=== PATIENT | female | born 1965 | race Caucasian/White ===

== ENCOUNTER → 2017-10-26 09:34 | Outpatient (CLI) | payer BC, SELFPAY ==
--- NOTE | 2017-10-26 09:37 | MM_ITS ---
MM Dig screening mamm BI w/CAD CAD Screening COMPARISON: Digital mammograms with CAD 08/21/2016 and outside films from [facility] within [place] 08/12/2011 INDICATION: There is no personal or family history of breast cancer TECHNIQUE: Standard CC and MLO images were obtained. R2 CAD reviewed. FINDINGS: There is a diffusely dense and heterogenic parenchymal pattern lessening the sensitivity of mammography. There are few scattered benign-appearing calcifications in each breast. There is a possible developing asymmetric density left breast upper outer quadrant. Recommend the patient return for spot compression views and ultrasound may be necessary as well There are no suspicious microcalcifications. IMPRESSION: Diffusely dense and heterogenic parenchymal pattern with possible asymmetric density left breast BI-RADS Category: 0 Need Additional Imaging Evaluation RECOMMENDED FOLLOW-UP: IMM - IMMEDIATE FOLLOW-UP RECOMMENDED (A letter has been sent to the patient regarding results of the study.)
== END ==
PROVIDERS: Family Provider Family Medicine; PCP Family Medicine; Visit Provider Family Medicine
DX: Z12.31 Encounter for screening mammogram for malignant neoplasm of breast (principal)
CPT/HCPCS: 77067

== ENCOUNTER → 2017-11-15 13:29 | Outpatient (CLI) | payer BC, SELFPAY ==
--- NOTE | 2017-11-15 13:35 | MM_ITS ---
MM Dig mamm DX unilat LT CAD Left breast ultrasound complete with axilla INDICATION: Abnormal mammogram follow-up ORDERING PHYSICIAN: Moise Miller MD PATIENT AGE: 52 years COMPARISON: 10/26/2017 TECHNIQUE: Problem solid views and left breast ultrasound FINDINGS: Dense fibroglandular tissue. Asymmetric density in the superior aspect of the left breast does appear to compress out as fibroglandular tissue. No malignant appearing mass or malignant appearing microcalcification. Dense fibroglandular tissue could obscure underlying lesions therefore, correlation with breast exam is needed. There are benign-appearing calcifications in the outer aspect of the left breast. Left breast ultrasound: 3 mm cyst is present at 1:00, additional 3 mm cyst at 1:00, 6 mm cyst at 1:00, complex 9 x 6 mm cyst at 5:00 with enhanced through transmission of sound with some septations. This could represent 2 adjacent cysts as well. Hypoechoic area at 5:00 also noted at 3 mm and may be due to complex cyst. 5 mm cyst at 7:00, 5 mm cyst at 11:00. No suspicious nodules evident. IMPRESSION: No convincing evidence of malignancy. Probably benign findings. Multiple cysts of the left breast some of which have a complex appearance probably benign. Recommend 6 month mammographic and sonographic follow-up BI-RADS Category: 3 Probably Benign Finding Short Term Follow-up RECOMMENDED FOLLOW-UP: 6M - 6 MONTH FOLLOW-UP (A letter has been sent to the patient regarding results of the study.)
== END ==
PROVIDERS: PCP Family Medicine; Visit Provider Family Medicine
DX: R92.8 Other abnormal and inconclusive findings on diagnostic imaging of breast (principal)
CPT/HCPCS: 76641; 77065

== ENCOUNTER → 2018-03-16 08:18 | Outpatient (CLI) | payer BC, SELFPAY ==
[2018-03-16 10:37] LABS: Chol/HDL Ratio 4.4 (1-3.5); Cholesterol 241 mg/dL (140-200); HDL Cholesterol 55 mg/dL (29-89); LDL Cholesterol 152 mg/dL (0-130); Triglycerides 172 mg/dL (30-200); VLDL Cholesterol 34 mg/dL (0-40)
== END ==
PROVIDERS: Visit Provider Family Medicine
DX: E78.5 Hyperlipidemia, unspecified (principal)
CPT/HCPCS: 36415; 80061

== ENCOUNTER → 2018-07-20 12:29 | Outpatient (CLI) | payer BC, SELFPAY ==
--- NOTE | 2018-07-20 13:30 | US_ITS ---
MM Dig mamm DX unilat LT CAD, US breast LT complete INDICATION: Follow-up abnormal mammogram. Ultrasound ORDERING PHYSICIAN: Moise Miller MD PATIENT AGE: 52 years COMPARISON: 10/26/2017, 11/15/2017 TECHNIQUE: There is average fibroglandular tissue. Spot compression views of left breast demonstrate ML view is obtained along with left breast ultrasound FINDINGS: Dense fibroglandular tissue which decreases sensitivity of mammography. No discrete mass or malignant appearing microcalcification. Left breast ultrasound: There are multiple hypoechoic areas noted. At 12:00 there is a hypoechoic nodule at 2 mm. There may be some internal echoes. At 1:00 there is a 6 x 2 mm cyst, 5:00 there is a small cluster of cysts measuring 8 x 7 mm total within additional 4 x 3 mm smaller complex cyst. These are unchanged. 9:00 there is a 4 mm cyst at 10:00 there is a 4 mm cyst. There is an isoechoic lesion at 10:00 near the nipple which on further inspection appear to elongate as the rest of the fibroglandular tissue. This appearance was not repeatable . This is felt to be due to fibroglandular tissue. IMPRESSION: Benign findings. No convincing evidence of malignancy. No skin change BI-RADS Category: 2 Benign Finding(s) Recommend bilateral follow-up in October 2018 the patient back on schedule. (A letter has been sent to the patient regarding results of the study.)
== END ==
PROVIDERS: PCP Family Medicine; Visit Provider Family Medicine
DX: R92.8 Other abnormal and inconclusive findings on diagnostic imaging of breast (principal)
CPT/HCPCS: 76641; 77065

== ENCOUNTER → 2020-01-30 08:16 | Outpatient (CLI) | payer MEDICARE, BC, SELFPAY ==
--- NOTE | 2020-01-30 08:16 | MM_ITS ---
PROCEDURE: MM DIG SCREENING MAMM BI W/CAD Digital Breast Tomosynthesis Included CLINICAL INDICATION: screening xmg There is no personal or family history of breast cancer. There has been a previous cyst aspiration right breast with benign findings. COMPARISON: MG SCBI MM Dig screening mamm BI w/CAD from 10/26/2017 MG DXLT MM Dig mamm DX unilat LT CAD from 11/15/2017 MG DIG MAMM-DX UNI-LT from 07/20/2018 TECHNIQUE: Standard CC and MLO images and 3D Tomosynthesis was obtained. R2 CAD reviewed. FINDINGS: There is a diffusely dense and heterogenic parenchymal pattern bilaterally. There is a benign-appearing macro calcification in each breast. There is a partially calcified oil cyst deep to the nipple left breast. There is no suspicious lesion and no suspicious microcalcifications. IMPRESSION: Diffusely dense parenchymal pattern with no suspicious lesions seen BI-RAD Category: 2 Benign Finding(s) FOLLOW-UP: 1YR 1 Year Follow-up (A letter has been sent to the patient regarding results of the study.) Dictated by: Dr. Zeyad Gil MD 02/05/2020 07:44 Dr. Zeyad Gil MD in [place] 02/05/2020 07:44
== END ==
PROVIDERS: PCP Family Medicine; Visit Provider Nurse Practitioner Obstetrics & Gynecology
DX: Z12.31 Encounter for screening mammogram for malignant neoplasm of breast (principal)
CPT/HCPCS: 77063; 77067

== ENCOUNTER → 2021-09-23 09:01 | Outpatient (CLI) | payer MEDICARE, BC, SELFPAY | PROVIDERS: PCP Family Medicine; Visit Provider Internal Medicine Gastroenterology | DX: Z01.812 Encounter for preprocedural laboratory examination (principal); Z20.822 Contact with and (suspected) exposure to COVID-19; Z12.11 Encounter for screening for malignant neoplasm of colon | CPT/HCPCS: C9803; U0003; U0005 ==

== ENCOUNTER 2021-09-25 08:29 | Day surgery (SDC) | payer MEDICARE, BC, SELFPAY ==
[2021-09-25 08:53] VITALS: BP 118/71; PULSE 75; RESP 16; TEMP 36.4; O2SAT 96; BMI 23.5
--- NOTE | 2021-09-25 09:20 | HMH.ANESCL ---
[facility] Anesthesia Checklist - Structural Data Admitted From: Home Planned Operative Procedure/s: colonoscopy Consent for Planned Operative Procedure(s) Verified: Yes - Airway Assessment C-Spine Mobility Assessed: Yes TMJ Mobility Assessed: Yes Dentition: Good Dentition - Neurological Assessment Level of Consciousness: Awake, Alert, Appropriate - Anesthesia Plan Anesthesia Risk discussed: Yes Anesthesia Plan: Verified ASA Class: II Anesthesia Type: MAC [facility] History I have reviewed the patient's past medical history: Yes Medical History: Reports:: Cancer Denies:: Diabetes Mellitus Type 1, Diabetes Mellitus Type 2, Internal Pacemaker, MRSA, Seizures *Have you ever received a pneumonia vaccine?: Yes *Have you received a flu vaccine this season?: Yes Other Medical History: Reports: Anemia, Chemotherapy Anesthesia experience/problems:: none Other Surgeries: No: Pacemaker Amputation: No Fractures: No - *Social History Last grade of school completed: High school graduate Smoking Status: Former smoker Tobacco Type: cigarettes Smoking End Date: 2015 Alcohol Intake: current Alcohol Intake Frequency:: holidays/special occasions only Substance Use Type: denies use *Occupational Status:: retired *Travel in the last 8 weeks: Inside the [facility] Family Hx:: No significant family history
[2021-09-25 09:31] VITALS: O2SAT 96
--- NOTE | 2021-09-25 09:40 | HMH.SCOPE ---
- Procedure: Date: 09/25/21 Patient Date of :: 1965 Procedure Performed:: Screening colonoscopy Indications:: History of polyps Performing Provider:: Lenny Waller MD Referring Provider:: Moise Miller Sedation:: Propofol Procedure:: After placing the patient in the left lateral decubitus position, the colonoscopy was gently inserted into the rectum and under direct visualization advanced to the cecum which was identified by transillumination in the right lower quadrant, identification of the ileocecal valve, appendiceal orifice, and cecal strap. Color, texture, mucosa, and anatomy of the colon were carefully examined with the scope. Findings:: Anal canal: normal Rectum: normal Sigmoid colon: normal without polyps or inflammatory changes Descending colon: normal without polyps or inflammatory changes Splenic flexure: normal Transverse colon: normal without polyps or inflammatory changes Hepatic flexure: normal Ascending colon: normal without polyps or inflammatory changes Cecum: normal Terminal ileum: not visualized Impression: Normal colonoscopy Specimens:: None Recommendations:: Repeat examination in about 5-10 years Complications:: None Estimated blood obtained (mL): 0
[2021-09-25 09:42] VITALS: BP 115/69; PULSE 77; RESP 16; TEMP 36.8; O2SAT 97
[2021-09-25 09:52] VITALS: BP 115/69; PULSE 66; RESP 16; O2SAT 100
[2021-09-25 10:02] VITALS: BP 114/70; PULSE 71; RESP 16; O2SAT 100
[2021-09-25 10:12] VITALS: BP 112/73; PULSE 66; RESP 16; O2SAT 97
== END 2021-09-25 10:12 | disposition home or self-care (01) ==
LOC: OUTP 08:30
PROVIDERS: PCP Family Medicine; Visit Provider Internal Medicine Gastroenterology
PROC: 0DJD8ZZ Inspection of Lower Intestinal Tract, Via Natural or Artificial Opening Endoscopic (ICD-10-PCS; CPT 45378; principal; 2021-09-25 09:30)
DX: Z12.11 Encounter for screening for malignant neoplasm of colon (principal); Z86.010 Personal history of colon polyps
CPT/HCPCS: G0105

== ENCOUNTER → 2022-12-22 09:46 | Outpatient (CLI) | payer MEDICARE, BC, SELFPAY | PROVIDERS: PCP Family Medicine; Visit Provider Family Medicine | DX: Z20.822 Contact with and (suspected) exposure to COVID-19 (principal) | CPT/HCPCS: 87635 ==

== ENCOUNTER → 2023-01-26 08:15 | Outpatient (CLI) | payer MEDICARE, BC, SELFPAY ==
--- NOTE | 2023-01-26 08:20 | MM_ITS ---
PROCEDURE INFORMATION: Exam: MG Bilateral Screening 3D Mammography Exam date and time: 01/26/2023 8:21 AM Age: 57 years old Clinical indication: Screening examination TECHNIQUE: Imaging protocol: Bilateral Screening tomosynthesis and 2D mammography including computer-aided detection (CAD) when performed. COMPARISON: 1. MG MM DIG SCREENING MAMM BI W/CAD 01/30/2020 8:30 AM 2. MG DIG MAMM-DX UNI-LT 07/20/2018 1:14 PM FINDINGS: MAMMOGRAPHY: Breast composition: The breasts are heterogeneously dense, which may obscure small masses. Mass: None. Architectural distortion: None. Calcifications: No suspicious calcifications. Asymmetric density: None. Skin thickening: None. Axillary adenopathy: None. IMPRESSION: No mammographic evidence of malignancy. Annual screening is recommended unless otherwise clinically indicated. ASSESSMENT: BI-RADS Category 1: Negative
--- NOTE | 2023-01-26 08:56 | XR_ITS ---
FINAL REPORT TECHNIQUE: Bone mineral density was calculated of the lumbar spine and hip. CLINICAL HISTORY: OSTEOPENIA FINDINGS: Using L1-4, the bone mineral density of the spine is 0.874 g/cm2, corresponding to T-score of -1.6. Using the left hip, the bone mineral density of the femoral neck is 0.709 g/cm2, corresponding to a T-score of -1.9. Using the right hip, the bone mineral density of the femoral neck is 0.687 g/cm2, corresponding to a T-score of -1.5. NOTE: T-score: Standard deviation compared with peak bone mass of young adult mean. *Following the recommendations of the International Society of Bone densitometry, classification of hip BMD is based on the lower of two T-scores; total hip or femoral neck. IMPRESSION: Diminished bone mineral density consistent with low bone density. FRAX data reports 8.2% for major osteoporotic fracture and 0.8% for hip fracture. Reviewed, Interpreted and Dictated by Jimmy Pinto III, MD Transcribed by Ирина Morris Authenticated and [facility]
== END ==
PROVIDERS: PCP Family Medicine; Visit Provider Family Medicine
DX: Z12.31 Encounter for screening mammogram for malignant neoplasm of breast; M85.89 Other specified disorders of bone density and structure, multiple sites
CPT/HCPCS: 77063; 77067; 77080

== ENCOUNTER 2024-06-22 09:18 | Outpatient (CLI) | payer MEDICARE, BC, SELFPAY ==
--- OUTSIDE RECORDS SUMMARY | 2024-06-22 09:20 | XMS_ITS | Continuity of Care Document ---
Author Organization [facility] Phone Care Team Providers Care Social Organization Professor Name Role Phone JACOBY WHARTON Primary Care OTF SANON Admitting OTF SANON Primary Attending ALLERGIES AND ADVERSE REACTIONS ALLERGIES AND ADVERSE REACTIONS Code System Allergy Substance Adverse Reaction Date Reaction (Severity) Comment Status Reported By Updated By 733 RXNorm Ampicillin Rash active [id number] on May 03, 2015 4:50:59 PM [place] FAMILY HISTORY RELATION: Father Status: Cause of : Unknown Age at : Unknown SNOMED-CT Diagnosis Age At Onset Information not available RELATION: Mother Status: LIVING SNOMED-CT Diagnosis Age At Onset Information not available RESULTS Patient: FELIZ Ac Date of : 1965 LABORATORY RESULTS ORDER 200: HEPATIC FUNCTIONA L PANEL (LOINC: 63489-4) ORDER DATE: April 20, 2024 7:10:00 PM [place] Specimen Source: PLASMA Specimen Type: Plasma specim en PERFORMING LAB: [address] [id number] Result Comment: Final Result Date: April 20, 2024 7:57:00 PM [facility] (TECH: [email or web address]) LOINC TEST FLAG RESULT REFERENCE RANGE UPDA MADELINE BY 2885-2 Protein [Mass/volume ] in Serum or Plasma N 7.4 g/dl 6.4 g/dl - 8.2 g/dl April 20, 2024 7:57:00 PM [facility] (TECH: JNJ) 1751-7 Albumin [Mass/volume ] in Serum or Plasma N 3.6 g/dl 3.4 g/dl - 5.0 g/dl April 20, 2024 7:57:00 PM [facility] (TECH: JNJ) 1968-7 Bilirubin.direct [Mass/volume] in Serum or Plasma N 0.1 O.OO April 20 7:57:00 PM [facility] (TECH: Feeligo) 1975-2 Bilirubin.total [Mass/volume] in Serum or Plasma N 0.40 mg/dL 0.10 mg/dL - 1.00 mg/dL April 20, 2024 7:57:00 PM [facility] (TECH: [employer]) 1971-1 Bilirubin.indirect [Mass/volume] in Serum or Plasma N 0.30 April 20 7:57:00 PM [facility] (TECH: [employer]igo) 1920-8 Aspartate aminotrans ferase [Enzymatic activity/volume] in Serum or Plasma N 20 U/L 0 U/L - 37 U/L April 20 7:57:00 PM [facility] ([employer]: Feeligo) 1742-6 Alanine aminotransfe rase [Enzymatic activity/volume] in Serum or Plasma N 30 U/L 0 U/L - 65 U/L April 20 7:57:00 PM [facility] ([employer]: [employer]) 6768-6 Alkaline phosphatase [Enzymatic activity/volume] in Serum or Plasma N 75 U/L 46 U/L - 116 U/L April 20 7:57:00 PM [facility] ([employer]: Feeligo) LABORATORY NARRATIVE RESULTS Information is not available RADIOLOGY RESULTS Information is not available PATHOLOGY NARRATIVE RESULTS Information is not available MICROBIOLOGY RESULTS No Micro Labs/Results Exist for Patient BLOOD ADMIN RESULTS Information is not available MEDICATIONS HOME MEDICATIONS Status RXNORM NDC Medication Dose Route Frequency Dates Comments Reported By Updated By Drug Treatment Unknown DISCHARGE MEDICATIONS Status RXNORM NDC Medication Dose Route Frequency Dates Comments Physician Updated By No Discharge Medication Info rmation Available INPATIENT MEDICATIONS Status RXNORM NDC Medication Dose Route Frequency Rat e Quantity Dates Comments Physician Updated By No Inpatient Medication Info rmation Available SOCIAL HISTORY SOCIAL HISTORY SNOMED-CT Social History Element Description Effective Dates Offered Cessation Comment UpdatedBy [id number] Historical Tobacco smoking status Current Every Day Smoker Refused [id number] on April 24, 2015 2:05:25 PM [facility] SOCIAL HISTORY - Gender Sex: Female SOCIAL HISTORY - Status : status i nformation is not available Intention in Next Year: intention information is not available SOCIAL HISTORY - Sexual Behavior Sexual Orientation Gender Identity SNOMED-CT Description SNO MED -CT Description Activity Level No of Partners Partner Type UpdatedBy Information is not available HEALTH CONCERNS Problems Concern Status Health Concern problem infor mation not available. Smoking Status Status Years Used Consumed packs p er day Health Concern smoking histo ry information not available. Family History Concern Status Health Concern family histor y information not available. ENCOUNTERS ENCOUNTER INFORMATION Reason for Visit LABS Admission April 20, 2024 6:59:00 PM [facility] [address] [facility] [id number] Discharge April 20, 2024 6:59:00 PM [facility] DISCHARGED TO HOME OR SELF CARE ENCOUNTER DIAGNOSES Notes information is not kayla ilable. Code System Diagnosis Onset Date Diagnosis information is not available. ABSTRACT DIAGNOSES Code System Diagnosis Updated By B35.1 ICD10 TINEA UNGUIUM [id number] on Apr 6:17:46 AM [facility] B35.1 ICD10 TINEA UNGUIUM [id number] on Apr 6:17:46 AM [facility] CARE TEAM Care Social Organization Professor Role JACOBY WHARTON Primary Care OTF SANON Admitting OTF SANON Primary Attending CARE TEAM CARE medicaid billing clerk Role on Team Status Start Date End Date Update d By AKIKO DOZIER [facility] normal April 20, 2024 5:00:00 AM [facility] April 20, 2024 6:59:00 PM [facility] [id number] on April 20, 2024 7:01:39 PM [facility] FAB ÁLVAREZ Attending normal April 5:00:00 AM [facility] April 20, 2024 6:59:00 PM [facility] [id number] on April 20, 2024 7:01:39 PM [facility] FAB ÁLVAREZ Admitting normal April 5:00:00 AM [facility] April 20, 2024 6:59:00 PM [facility] [id number] on April 20, 2024 7:01:39 PM [facility]
--- OUTSIDE RECORDS SUMMARY | 2024-06-22 09:20 | XMS_ITS | Continuity of Care Document ---
Author Organization [facility]. If a dditional information is needed, contact Health Information Management at [phone] [place] [address] Phone Care Team Providers Care Post Exchange Manager Name Role Phone Unavailable Unavailable Unavailable Unavailable Unavailable Unavailable Unavailable Unavailable Unavailable Unavailable Unavailable Procedures Chest without ContrastResult:[facility] [address] [place] [address] Diagnostic Imaging ReportPatient Name: BAUDILIO PIPER Acct: [id number]: 1965 Age: 58 Sex: F MR#: [id number] Date/Time: 02/28/24 Admit Date/Time:Patient Status: REG CLI Ordering Physician: EKATERINA Giraldoaticriss Location: [facility] Attending Physician: Keisha Giraldoession Number(s): [id number](s): Computed Tomography CT Chest without ContrastCPT Code(s): 99158TBFFUJNN INDICATION: LUNG NODULE TECHNIQUE: Multiple CT helical images were obtained from thoracic inlet through upper abdomen withoutadministration of IV contrast. Total DLP (Dose- Length Product): 280 mGy*cm. Please note: The reported value represents the totalof one or more individual components during the CT acquisition on this date and at this time, and assuch, the same value may appear in more than one CT report depending on the interpreting/reportingphysicians. COMPARISON: 10/15/2023 and 01/03/2024. FINDINGS: Mediastinum and Pleura: Subcarinal lymph node versus fluid in the transverse pericardial sinusmeasuring up to 11 mm (series 4, image 147). No pleural or pericardial effusion. 14 mm homogenousleft thyroid lobe nodule (series 4, image 28). Coronary artery calcifications. Mild thoracic aorticcalcification. Lungs: Mild biapical pleural-parenchymal thickening. Mild scarring in the inferior lingula and leftlower lobe. Focal lung findings: * Redemonstration of groundglass opacity in the right upper lobe with adjacent scarring measuringup to 3.6 cm (series 3, image 25). * Redemonstration of right lower lobe consolidation with associated air bronchograms (series 3,image 85). * 11 mm right middle lobe pulmonary nodule versus nodular scarring (series 3, image 82). Upper Abdomen: No suspicious lesions in the partially visualized upper abdomen. Gallbladder stoneis noted within the unremarkable gallbladder. Musculoskeletal: No suspicious lytic or sclerotic lesion. Mild degenerative changes of the spine.Dextroscoliosis. CT/CT Chest without ContrastIMPRESSION:Patient Name: BAUDILIO PIPER Acct: [id number] Unit: [id number] Page 1No evidence of disease progression. No substantial change of right lower lobe consolidation, rightupper lobe ground glass opacity and right middle lobe nodule. No new focal airspace disease orenlarging pulmonary nodules.Recommend repeat CT chest in 3 months.CRITICAL RESULT:No.COMMUNICATION:Per this written report.Drafted by Luca Merida MD on 02/28/2024 8:15 AMFinal report signed by Luca Merida MD on 02/28/2024 8:24 AM<Electronically signed by [facility] Luca Merida in [place]>02/28/24823 Thank you for choosing [facility] Dictated By: KELLY Jean Dictated Date/Time: 02/28/24823Transcribed By: Luca Merida MDTranscribed Date/Time: 02/28/24823Technologist: Berry OchoaCoptiffanie To: Gene Miller MD; Modesto Ruvalcaba MD Report ID: [id number] -End of Report-Patient Name: BAUDILIO PIPER Acct: [id number] Unit: [id number] Page 2 Date:23-Dec-2024 Status:Completed Chest without ContrastResult:[place] [address] Diagnostic Imaging ReportPatient Name: BAUDILIO PIPER Acct: [id number]: 1965 Age: 58 Sex: F MR#: [id number] Date/Time: 01/03/2418 Admit Date/Time:Patient Status: REG CLI Ordering Physician: EKATERINA Giraldoaticriss Location: [facility] Attending Physician: Keisha Giraldoession Number(s): [id number](s): Computed Tomography CT Chest without ContrastCPT Code(s): [id number] INDICATION: D61.3 TECHNIQUE: Multiple CT helical images were obtained from thoracic inlet through upper abdomen Total DLP (Dose-Length Product): 293.04 mGy*cm. Please note: The reported value represents thetotal of one or more individual components during the CT acquisition on this date and at this time,and as such, the same value may appear in more than one CT report depending on theinterpreting/reporting physicians. COMPARISON: CT chest without contrast 10/15/2023 FINDINGS: Mediastinum and Pleura: No mediastinal or hilar adenopathy. No axillary adenopathy. Previouslyidentified subcarinal lymph node/fluid in the pericardial sinus measures 10 mm (series 2 image 65).No pleural or pericardial effusion. Unchanged hypodense left thyroid nodule (series 2 image 15).Moderate coronary calcifications. Aortic calcifications. Lungs: Unchanged 36 mm right upper lobe groundglass nodule with adjacent scarring and adjacentsatellite ground glass opacities (series 3 image 30). Redemonstrated 10 mm right middle lobepulmonary nodule (series 3 image 86). Unchanged right lower lobe consolidation (series 3 image 96).No other suspicious pulmonary nodules. Calcified granuloma (series 3 image 106). Upper Abdomen: Cholelithiasis. No suspicious lesions in the partially visualized upper abdomen. Musculoskeletal: No suspicious lytic or sclerotic lesion. CT/CT Chest without ContrastIMPRESSION:Unchanged right lower lobe consolidation, right middle lobe pulmonary 10 mm solid nodule and rightupper lobe groundglass opacity. Recommend continued follow with CT chest in 3 months.CRITICAL RESULT:No.Patient Name: BAUDILIO PIPER Acct: [id number] Unit: [id number] Page 1COMMUNICATION:Per this written report.By electronically signing this report, I, the attending physician, attest that I have personallyreviewed the images/data for the above examination(s) and I agree with the final edited report.Drafted by Felice Albert MD on 01/03/2024 10:26 AMFinal report signed by Donavan Dye MD on 01/03/2024 11:24 AM<Electronically signed by Donavan Dye MD in [place]>01/03/24 1124 Thank you for choosing [facility] Dictated By: DARLENE Danielsictated Date/Time: 01/03/241123Transcribed By: Donavan Dye MDTranscribed Date/Time: 01/03/241123Technologist: Berry Velasco To: Gene Miller MD; Modesto Ruvalcaba MD Report ID: [id number] -End of Report-Patient Name: BAUDILIO PIPER Acct: [id number] Unit: [id number] Page 2 Date:03-Jan-2024 Status:Completed Chest without ContrastResult:[place] [address] Diagnostic Imaging ReportPatient Name: BAUDILIO PIPER Acct: [id number]: 1965 Age: 58 Sex: F MR#: [id number] Date/Time: 10/15/23 0835 Admit Date/Time:Patient Status: REG CLI Ordering Physician: EKATERINA Giraldoaticriss Location: [facility] Attending Physician: Keisha Giraldoession Number(s): [id number](s): Computed Tomography CT Chest without ContrastCPT Code(s): [id number] INDICATION: Congestion, aplastic anemia, positive GRAY titer with history of bone marrow transplant TECHNIQUE: Multiple CT helical images were obtained from thoracic inlet through upper abdomen withoutadministration of IV contrast. Total DLP (Dose- Length Product): 276.34 mGy*cm. Please note: The reported value represents thetotal of one or more individual components during the CT acquisition on this date and at this time,and as such, the same value may appear in more than one CT report depending on theinterpreting/reporting physicians. COMPARISON: None. FINDINGS: Mediastinum and Pleura: Subcarinal lymph node versus fluid in the transverse pericardial sinusmeasuring up to 11 mm (series 2, image 70). No pleural or pericardial effusion. 14 mm homogenousleft thyroid lobe nodule (series 2, image 21). Moderate coronary artery calcifications. Mild thoracic aortic calcification. Lungs: Right lower lobe consolidation with associated air bronchograms (series 3, image 94).Groundglass nodule in the right upper lobe, with some scarring seen adjacent, 36 mm long axis. 11 mmright middle lobe pulmonary nodule versus nodular scarring (series 3, image 93). Mild biapicalpleural-parenchymal thickening. Mild scarring in the inferior lingula and left lower lobe. Upper Abdomen: No suspicious lesions in the partially visualized upper abdomen. Cholelithiasis. Musculoskeletal: No suspicious lytic or sclerotic lesion. Mild degenerative changes of the spine.Dextroscoliosis. 0017 CT/CT Chest without ContrastIMPRESSION:Right lower lobe consolidation, with appearance most suggestive of infection or aspiration. Thisshould be followed until clearance to exclude underlying neoplasm.Right middle lobe 11 mm pulmonary nodule or nodular scarring. Large right upper lobe groundglassPatient Name: BAUDILIO PIPER Acct: [id number] Unit: [id number] Page 1nodule.Recommend repeat CT chest in 3 months.CRITICAL RESULT:No.COMMUNICATION:Per this written report.By electronically signing this report, I, the attending physician, attest that I have personallyreviewed the images/data for the above examination(s) and I agree with the final edited report.Drafted by Dyllan Mcintyre MD on 10/15/2023 8:54 AMFinal report signed by Austin Peters MD on 10/15/2023 9:39 AM<Electronically signed by Austin Peters MD in [place]>10/15/23 0939 Thank you for [facility] Imaging Services Dictated By: Austin Peters MD Dictated Date/Time: 10/15/23 0939Transcribed By: Austin Peters MD Transcribed Date/Time: 10/15/23 0939Technologist: Berry Velasco To: Gene Miller MD; Modesto Ruvalcaba MD Report ID: [id number] -End of Report-Patient Name: BAUDILIO PIPER Acct: [id number] Unit: [id number] Page 2 Date:15-Oct-2023 Status:Completed Encounters Ambulatory Encounter Reason:D61.3,R91.1 Encounter Diagnosis:SOLITARY PULMONARY NODULE,XEROSIS CUTIS,OTHER MUSCLE SPASM,PAIN IN UNSPECIFIED JOINT,Cough, unspecified,IDIOPATHIC APLASTIC ANEMIA 28-Feb-2024 07:[id number] 07:14 Peg Mariee (Attending) [place] Discharge Disposition:Discharged to home or self care (routine discharge) Ambulatory Encounter Reason:D61.3 APLASTIC ANEMIA Encounter Diagnosis:LOBAR PNEUMONIA, UNSPECIFIED ORGANISM,SOLITARY PULMONARY NODULE,OTHER NONSPECIFIC ABNORMAL FINDING OF LUNG FIELD,Chronic cough,XEROSIS CUTIS,PAIN IN UNSPECIFIED JOINT,OTHER FORMS OF STOMATITIS,OTHER VIRAL ENTERITIS,OTHER SPECIFIED ABNORMAL IMMUNOLOGICAL FINDINGS IN SERUM,SLEEP RELATED LEG CRAMPS,IDIOPATHIC APLASTIC ANEMIA 03-Jan-2024 09:[id number] 09:11 Peg Mariee (Attending) [place] Discharge Disposition:Discharged to home or self care (routine discharge) Ambulatory Encounter Reason:D61.3 R76.8 Encounter Diagnosis:SOLITARY PULMONARY NODULE,IDIOPATHIC APLASTIC ANEMIA,OTHER SPECIFIED ABNORMAL IMMUNOLOGICAL FINDINGS IN SERUM,Chronic cough,XEROSIS CUTIS,PAIN IN UNSPECIFIED JOINT,VIRAL INFECTION, UNSPECIFIED,CRAMP AND SPASM,ORAL MUCOSITIS (ULCERATIVE), UNSPECIFIED,LOBAR PNEUMONIA, UNSPECIFIED ORGANISM 15-Oct-2023 08:[id number] 08:34 Peg Mariee (Attending) [place] Discharge Disposition:Discharged to home or self care (routine discharge)
--- OUTSIDE RECORDS SUMMARY | 2024-06-22 09:20 | XMS_ITS ---
Author Organization Unknown Allergies, Adverse Reactions and Alerts Date IsAllergic OnsetDate Allergen Reaction Type Severity Tello rgyCode Legacyallergictoid ReactionCode ReactionCodeSystemID 06/12 00:00 :00 1 Ampicilli n rash [id number] 06/09 00:00 :00 1 Ampicilli n rash [id number] 06/06 00:00 :00 1 Ampicilli n rash [id number] 05/18 00:00 :00 1 Ampicilli n rash 02132621962 05/01 00:00 :00 1 Ampicilli n rash [id number] 02/24 00:00 :00 1 Ampicilli n rash 51907168634 02/08 00:00 :00 1 Ampicilli n rash [id number] 11/28 00:00 :00 1 Ampicilli n rash 80462074169
--- NOTE | 2024-06-22 09:21 | XR_ITS ---
FINAL REPORT CLINICAL HISTORY: post menopausal, oteopenia COMPARISON: 01/26/2023 FINDINGS: Using L1-4, the bone mineral density of the spine is 0.879 g/cm2, corresponding to T-score of -1.5. Using the left hip, the bone mineral density of the femoral neck is 0.6 3 5 g/cm2, corresponding to a T-score of -1.9. Using the right hip, the bone mineral density of the femoral neck is 0.675 g/cm2, corresponding to a T-score of -1.6. FRAX 10 year fracture risk is 9.2% for a hip fracture and 1.1% for a major osteoporotic fracture. IMPRESSION: Bone mineral density of the lumbar spine and bilateral femoral necks is in the range of osteopenia. NOTE: T-score: Standard deviation compared with peak bone mass of young adult mean. *Following the recommendations of the International Society of Bone densitometry, classification of hip BMD is based on the lower of two T-scores; total hip or femoral neck. Reviewed, Interpreted and Dictated by Demian Dowd MD Transcribed by Danisha Hernandez Authenticated and [facility]
--- NOTE | 2024-06-22 09:21 | MM_ITS ---
PROCEDURE INFORMATION: Exam: MG Bilateral Screening 3D Mammography Exam date and time: 06/22/2024 9:33 AM Age: 58 years old Clinical indication: Screening examination TECHNIQUE: Imaging protocol: Bilateral Screening tomosynthesis and 2D mammography including computer-aided detection (CAD) when performed. COMPARISON: 1. MG MM DIG SCREENING MAMM BI W/CAD 01/26/2023 8:21 AM 2. MG MM DIG SCREENING MAMM BI W/CAD 01/30/2020 8:30 AM FINDINGS: MAMMOGRAPHY: Breast composition: The breasts are heterogeneously dense, which may obscure small masses. Mass: None. Architectural distortion: None. Calcifications: No suspicious calcifications. Asymmetric density: None. Skin thickening: None. Axillary adenopathy: None. IMPRESSION: No mammographic evidence of malignancy. Annual screening is recommended unless otherwise clinically indicated. ASSESSMENT: BI-RADS Category 1: Negative.
== END 2024-06-22 23:59 | disposition home or self-care (01) ==
LOC: RAD 09:19
PROVIDERS: PCP Family Medicine; Visit Provider Family Medicine
DX: M85.89 Other specified disorders of bone density and structure, multiple sites (principal); Z78.0 Asymptomatic menopausal state; Z12.31 Encounter for screening mammogram for malignant neoplasm of breast
CPT/HCPCS: 77063; 77067; 77080